=== PATIENT | female | born 1990 | race Caucasian/White ===

== ENCOUNTER 2022-08-15 15:10 | Inpatient (IN) | payer OTHER ==
[~2022-08-15] VITALS: Ht 167.6 cm; Wt 63.5 kg
[2022-08-15] MEDS ORDERED: LACTATED RINGERS 1,000 ML IV SCH (16:00)
[2022-08-15] MEDS ORDERED: ONDANSETRON 4 MG/2 ML VIAL IVP PRN (16:00)
[2022-08-15] MEDS ORDERED: CARBOPROST 250 MCG/ML AMP IM PRN (16:00)
[2022-08-15] MEDS ORDERED: METHYLERGONOVINE 0.2 MG/ML AMP IM PRN (16:00)
[2022-08-15] MEDS ORDERED: MORPHINE SULFATE 10 MG/ML VIAL IVP PRN (16:10)
[2022-08-15 16:25] LABS: BASOPHILS % (AUTO) 0.1 % (0.0-2.0); HEMOGLOBIN 12.1 g/dL (12.0-16.0); LYMPHOCYTES # (AUTO) 0.5 K/uL (2.5-16.5); LYMPHOCYTES % (AUTO) 2.5 % (20.5-51.1); MEAN CORPUSCULAR HEMOGLOBIN 32 pg (27-31); MEAN CORPUSCULAR HGB CONC 34 g/dL (33-37); MEAN CORPUSCULAR VOLUME 94.1 fL (80-94); MONOCYTES # (AUTO) 1.2 K/uL (0.8-1.0); MONOCYTES % (AUTO) 6.1 % (1.7-9.3); NEUTROPHILS # (AUTO) 17.8 K/uL (1.8-7.7); NEUTROPHILS % (AUTO) 91.3 % (42.2-75.2); PLATELET COUNT (AUTO) 192 K/uL (140-450); RED BLOOD CELL COUNT(AUTO) 3.83 MIL/uL (4.20-5.40); RED CELL DISTRIBUTION WIDTH 13.9 % (11.6-13.7); WHITE BLOOD COUNT (AUTO) 19.5 K/uL (4.8-10.8)
[2022-08-15 16:30] VITALS: BP 127/69
[2022-08-15 16:39] VITALS: BP 127/69
[2022-08-15 17:16] LABS: ALBUMIN 2.5 g/dL (3.4-5.0); ANION GAP 16.2 (8-16); CARBON DIOXIDE 20.8 mmol/L (21-32); CREATININE 0.6 mg/dL (0.6-1.3); TOTAL BILIRUBIN 0.4 mg/dL (0.0-1.0)
[2022-08-15 17:30] LABS: PROTHROMBIN TIME 9.4 secs (10.8-13.4)
[2022-08-15] MEDS ORDERED: ROPIVACAINE 0.2%/NS PREMIX 200 ML EPI ONE (17:46)
[2022-08-15] MEDS ORDERED: fentaNYL citrate 0.05 MG/ML VIAL ONE (17:47)
[2022-08-15] MEDS ORDERED: AMPICILLIN 2,000 MG in NACL 0.9% MINI-BAG PLUS 100 ML IV SCH (20:10)
[2022-08-15] MEDS ORDERED: AMPICILLIN 2,000 MG VIAL ONE (20:16)
[2022-08-15] MEDS ORDERED: ACETAMINOPHEN 325 MG TAB PO SCH (20:30)
[2022-08-15] MEDS ORDERED: GENTAMICIN 80 MG in DEXTROSE 5% 100 ML IV SCH (20:30)
[2022-08-15] MEDS ORDERED: ACETAMINOPHEN EXTRA STRENGTH 500 MG TAB ONE (20:33)
[2022-08-15] MEDS ORDERED: GENTAMICIN 80 MG/2 ML VIAL ONE (21:23)
[2022-08-15 22:35] LABS: APPEARANCE,URINE CLEAR (CLEAR); BILIRUBIN,URINE NEGATIVE (NEGATIVE); BLOOD, URINE 3+ (NEGATIVE); COLOR,URINE YELLOW (YELLOW); LEUKOCYTE ESTERASE ,URINE NEGATIVE (NEGATIVE); NITRITE, URINE NEGATIVE (NEGATIVE); UGLUCOSE NEGATIVE (NEGATIVE)
[2022-08-15 23:52] LABS: BARBITURATE, URINE NEGATIVE ng/ml (NEG <=200); BENZODIAZEPINE, URINE NEGATIVE ng/mL (NEG <=200); CANNABINOID, URINE NEGATIVE ng/mL (NEG <=50); COCAINE, URINE NEGATIVE ng/mL (NEG <=300); OPIATE, URINE POSITIVE ng/mL (NEG <=2000); PHENCYCLIDINE SCREEN,URINE NEGATIVE ng/mL (NEG <=25)
[2022-08-15 23:53] LABS: RBC,URINE 11-20 (MOD) /HPF (0-5)
[2022-08-15 23:54] LABS: WBC,URINE 0-5 /HPF (0-5)
[2022-08-16] MEDS ORDERED: AMPICILLIN 1,000 MG in NACL 0.9% MINI-BAG PLUS 50 ML IV SCH ×2
[2022-08-16] MEDS ORDERED: diphenhydrAMINE 50 MG/ML VIAL IVP PRN (01:10)
[2022-08-16] MEDS ORDERED: METOCLOPRAMIDE 10 MG/2 ML INJ VIAL IVP PRN (01:10)
[2022-08-16] MEDS ORDERED: NALOXONE 0.4 MG/ML VIAL IVP PRN ×3 (01:10)
[2022-08-16] MEDS ORDERED: ONDANSETRON 4 MG/2 ML VIAL IVP PRN (01:10)
[2022-08-16] MEDS ORDERED: NALBUPHINE 10 MG/ML AMP IVP PRN (01:10)
[2022-08-16] MEDS: OXYTOCIN 20 UNITS/LR PREMIX 1,000 ML IV ONE ×2 (01:49→02:06)
[2022-08-16] MEDS ORDERED: METHYLERGONOVINE 0.2 MG/ML AMP IM PRN ×2 (03:00→15:50)
[2022-08-16] MEDS: KETOROLAC 30 MG/ML VIAL IM/IVP SCH ×3 (06:33→18:06)
[2022-08-16] MEDS: bisacodyL 10 MG SUPP RC SCH (09:00)
[2022-08-16] MEDS: OXYTOCIN 20 UNITS in LACTATED RINGERS 1,000 ML IV SCH ×2 (09:35→18:05)
--- NOTE | 2022-08-16 09:44 | NUR ---
PATIENT HAS BEEN SCREENED AND CATEGORIZED LOW NUTRITION RISK. PATIENT WILL BE SEEN WITHIN 7 DAYS OF ADMISSION. 08/22/22 REVIEWED BY [address] HERNA[address] RD
[2022-08-16 12:08] LABS: HEPATITIS B SURFACE ANTIGEN Negative (Negative)
[2022-08-16] MEDS ORDERED: oxyCODONE/APAP 5/325 MG 1 TAB TAB PO PRN (15:50)
[2022-08-16] MEDS ORDERED: MEASLES, MUMPS, AND RUBELLA 1 VIAL SQVAC ONE (15:50)
[2022-08-16] MEDS ORDERED: OXYTOCIN 20 UNITS/LR PREMIX 1,000 ML IV ONE (17:58)
[2022-08-16] MEDS: SIMETHICONE 80 MG TAB.CHEW PO PRN (18:06)
[2022-08-17] MEDS: oxyCODONE/APAP 5/325 MG 1 TAB TAB PO PRN ×3 (06:27→21:58)
[2022-08-17] MEDS: SIMETHICONE 80 MG TAB.CHEW PO PRN ×2 (06:28→13:36)
[2022-08-17 07:34] LABS: BASOPHILS % (AUTO) 0.1 % (0.0-2.0); EOSINOPHILS # (AUTO) 0.1 K/uL (0-0.4); EOSINOPHILS % (AUTO) 0.4 % (0.0-4.0); HEMATOCRIT 34.1 % (36-48); HEMOGLOBIN 11.7 g/dL (12.0-16.0); LYMPHOCYTES # (AUTO) 1.2 K/uL (2.5-16.5); LYMPHOCYTES % (AUTO) 7.2 % (20.5-51.1); MEAN CORPUSCULAR HEMOGLOBIN 32 pg (27-31); MEAN CORPUSCULAR HGB CONC 34 g/dL (33-37); MEAN CORPUSCULAR VOLUME 94.7 fL (80-94); MONOCYTES # (AUTO) 0.5 K/uL (0.8-1.0); MONOCYTES % (AUTO) 2.8 % (1.7-9.3); NEUTROPHILS # (AUTO) 14.7 K/uL (1.8-7.7); NEUTROPHILS % (AUTO) 89.5 % (42.2-75.2); PLATELET COUNT (AUTO) 191 K/uL (140-450); RED CELL DISTRIBUTION WIDTH 14.4 % (11.6-13.7); WHITE BLOOD COUNT (AUTO) 16.4 K/uL (4.8-10.8)
[2022-08-17] MEDS ORDERED: IBUPROFEN 600 MG TAB PO PRN (12:00)
[2022-08-17] MEDS: bisacodyL 10 MG SUPP RC SCH (21:59)
[2022-08-18] MEDS ORDERED: CAMERA MC ONE (04:41)
== END 2022-08-18 14:15 | disposition home or self-care (01) | DRG 786 ==
LOC: MFCC 15:10
PROVIDERS: ADMIT Obstetrics & Gynecology; ATTEND Obstetrics & Gynecology
PROC: 10D00Z1 Extraction of Products of Conception, Low, Open Approach (ICD-10-PCS; principal; 2022-08-16)
PROC: 3E0234Z Introduction of Serum, Toxoid and Vaccine into Muscle, Percutaneous Approach (ICD-10-PCS; 2022-08-16)
DX: O48.0 Post-term pregnancy (principal); O41.1230 Chorioamnionitis, third trimester, not applicable or unspecified; O77.0 Labor and delivery complicated by meconium in amniotic fluid; O76 Abnormality in fetal heart rate and rhythm complicating labor and delivery; O62.0 Primary inadequate contractions; Z20.822 Contact with and (suspected) exposure to COVID-19; Z37.0 Single live birth; Z3A.40 40 weeks gestation of pregnancy; Z23 Encounter for immunization
CPT/HCPCS: 36415; 80053; 80305; 81001; 85025; 85610; 85730; 86592; 86762; 86850; 86886; 86900; 86901; 87086; 87340; J0290; J0690; J1580; J1885; J2270; J2405; J2590; J2790; J2795; J3010; J7060; J7120

== ENCOUNTER 2022-08-24 15:42 | Inpatient (IN) | payer OTHER ==
[~2022-08-24] VITALS: Ht 167.6 cm; Wt 68.0 kg
[2022-08-24 16:01] VITALS: BP 130/80
[2022-08-24 16:33] LABS: BASOPHILS % (AUTO) 0.2 % (0.0-2.0); EOSINOPHILS # (AUTO) 0.1 K/uL (0-0.4); EOSINOPHILS % (AUTO) 0.3 % (0.0-4.0); HEMOGLOBIN 13.1 g/dL (12.0-16.0); LYMPHOCYTES # (AUTO) 1.9 K/uL (2.5-16.5); LYMPHOCYTES % (AUTO) 9.7 % (20.5-51.1); MEAN CORPUSCULAR HEMOGLOBIN 31 pg (27-31); MEAN CORPUSCULAR HGB CONC 34 g/dL (33-37); MONOCYTES # (AUTO) 0.7 K/uL (0.8-1.0); MONOCYTES % (AUTO) 3.9 % (1.7-9.3); NEUTROPHILS # (AUTO) 16.5 K/uL (1.8-7.7); NEUTROPHILS % (AUTO) 85.9 % (42.2-75.2); PLATELET COUNT (AUTO) 449 K/uL (140-450); RED BLOOD CELL COUNT(AUTO) 4.19 MIL/uL (4.20-5.40); WHITE BLOOD COUNT (AUTO) 19.2 K/uL (4.8-10.8)
[2022-08-24] MEDS ORDERED: cefTRIAXone 2,000 MG in DEXTROSE 5% 100 ML IV ONE (17:00)
[2022-08-24] MEDS ORDERED: cefTRIAXone 2,000 MG VIAL ONE (17:03)
--- NOTE | 2022-08-24 17:15 | NUR ---
a/o times 4, nad, here for discharge and erythema at c section site last week, sr on cm o2 sat 98 % ra, sr up times 2
[2022-08-24 17:38] LABS: ANION GAP 12.9 (8-16); CARBON DIOXIDE 24.6 mmol/L (21-32); CREATININE 0.7 mg/dL (0.6-1.3); POTASSIUM 3.5 mmol/L (3.5-5.1); TOTAL BILIRUBIN 0.2 mg/dL (0.0-1.0)
[2022-08-24] MEDS ORDERED: MORPHINE SULFATE 4 MG/ML SYR IVP ONE (18:25)
--- NOTE | 2022-08-24 18:39 | NUR ---
pt c/o pain at sx site, offered morphine, pt refuses, wants to take own pain pills. Dr Brown not present, will contact admitting
[2022-08-24] MEDS ORDERED: ACET-5629 PO (18:56)
[2022-08-24] MEDS ORDERED: LORazepam 2 MG/ML VIAL IVP PRN (19:10)
[2022-08-24] MEDS ORDERED: MORPHINE SULFATE 2 MG/ML SYR IVP PRN (19:10)
[2022-08-24] MEDS ORDERED: ACETAMINOPHEN 325 MG TAB PO PRN (19:10)
[2022-08-24] MEDS ORDERED: DOCUSATE SODIUM 100 MG GELCAP PO PRN (19:10)
[2022-08-24] MEDS ORDERED: POTASSIUM CHLORIDE 10 MEQ TABER PO PRN (19:10)
[2022-08-24] MEDS ORDERED: ZOLPIDEM 10 MG TAB PO PRN (19:10)
[2022-08-24] MEDS ORDERED: MAG SULF 2000 MG/WATER PREMIX 50 ML IV PRN (19:10)
[2022-08-24] MEDS ORDERED: ONDANSETRON 4 MG/2 ML VIAL IVP PRN (19:10)
--- NOTE | 2022-08-24 19:30 | NUR ---
Patient received on bed lying comfortably and awake. Alert and oriented x 4. No acute distress. No complaints of pain or discomfort. Respirations even and unlabored.
--- NOTE | 2022-08-24 20:54 | NUR ---
Patient will be admitted to care of Dr. Shah. Admited to [facility]. Will go to room 125B. Belongings list completed. Report to MANUELITO Pierre.
[2022-08-24 21:05] VITALS: BP 108/64
--- NOTE | 2022-08-24 21:05 | NUR ---
ADMITTED PATIENT FROM ED, A 32 YEAR OLD FEMALE, ALERT AND ORIENTED X4, CAME IN FOR EVALUATION OF WOUND FOR DRAINAGE, DIAGNOSIS OF INFECTED SURGICAL WOUND S/P . DRAINAGE NOTED ON WOUND. PATIENT ABLE TO AMBULATE FROM GURNEY TO BED, IS CONTINENT, USES THE RESTROOM. MRSA DONE. STAFF ORIENTED PATIENT TO ROOM, CALL LIGHT. INITIAL ASSESSMENT DONE. ALL SAFETY MEASURES IN PLACE.
[2022-08-24] MEDS ORDERED: cefTRIAXone 1,000 MG VIAL ONE (23:13)
--- NOTE | 2022-08-25 01:10 | NUR ---
PATIENT IS AWAKE, DENIES PAIN AT THIS TIME, BREATHING EVEN AND NON LABORED ON ROOM AIR. CALL LIGHT IS WITHIN REACH.
[2022-08-25 04:00] VITALS: BP 124/79
[2022-08-25 06:48] LABS: ANION GAP 12.2 (8-16); CARBON DIOXIDE 26.9 mmol/L (21-32); CREATININE 0.6 mg/dL (0.6-1.3); POTASSIUM 4.1 mmol/L (3.5-5.1)
[2022-08-25 07:02] LABS: BASOPHILS % (AUTO) 0.2 % (0.0-2.0); EOSINOPHILS # (AUTO) 0.1 K/uL (0-0.4); EOSINOPHILS % (AUTO) 0.8 % (0.0-4.0); HEMATOCRIT 40.5 % (36-48); HEMOGLOBIN 13.6 g/dL (12.0-16.0); LYMPHOCYTES # (AUTO) 1.7 K/uL (2.5-16.5); MEAN CORPUSCULAR HEMOGLOBIN 31 pg (27-31); MEAN CORPUSCULAR HGB CONC 34 g/dL (33-37); MEAN CORPUSCULAR VOLUME 93.6 fL (80-94); MONOCYTES # (AUTO) 0.5 K/uL (0.8-1.0); MONOCYTES % (AUTO) 4.4 % (1.7-9.3); NEUTROPHILS # (AUTO) 9.6 K/uL (1.8-7.7); NEUTROPHILS % (AUTO) 80.6 % (42.2-75.2); PLATELET COUNT (AUTO) 474 K/uL (140-450); RED BLOOD CELL COUNT(AUTO) 4.32 MIL/uL (4.20-5.40); RED CELL DISTRIBUTION WIDTH 14.2 % (11.6-13.7); WHITE BLOOD COUNT (AUTO) 11.9 K/uL (4.8-10.8)
--- NOTE | 2022-08-25 07:27 | NUR ---
ENDORSED PATIENT TO DAY NURSE FOR CONTINUITY OF CARE, NEEDS MET THROUGHOUT THE SHIFT. PATIENT IN STABLE CONDITION.
[2022-08-25 08:00] VITALS: BP 121/74
--- NOTE | 2022-08-25 09:54 | NUR ---
PATIENT HAS BEEN SCREENED AND CATEGORIZED MODERATE NUTRITION RISK. PATIENT WILL BE SEEN WITHIN 3-5 DAYS OF ADMISSION. 08/24/22-08/29/[address]
[2022-08-25] MEDS ORDERED: CEPH250C16 PO (15:48)
[2022-08-25 16:04] VITALS: BP 109/71
--- NOTE | 2022-08-25 17:21 | NUR ---
DISCHARGE PATIENT IN STABLE CONDITION PER OB DOCTOR AND PCP ORDER. PATIENT WILL FOLLOW UP [facility] AND VISIT DOCTOR OFFICE TOMORROW. DISCHARGE INSTRUCTION GIVEN, DISCHARGE CONSENT SIGNED. IV ACCESS AND WRIST BAND REMOVED PRIOR WHEEL PATIENT OUT THE FACILITY
== END 2022-08-25 18:05 | disposition home or self-care (01) | DRG 776 ==
LOC: MED 15:42 → MTU 18:04 → MMU 19:07
PROVIDERS: ADMIT Family Medicine; ATTEND Family Medicine
DX: O86.00 Infection of obstetric surgical wound, unspecified (principal); A41.9 Sepsis, unspecified organism; O86.04 Sepsis following an obstetrical procedure; E44.1 Mild protein-calorie malnutrition; O25.3 Malnutrition in the puerperium; Z20.822 Contact with and (suspected) exposure to COVID-19; Z79.891 Long term (current) use of opiate analgesic; Z79.899 Other long term (current) drug therapy
CPT/HCPCS: 36415; 80048; 80053; 83605; 83735; 85025; 87040; 87081; J0696; J7060